=== PATIENT | male | born 1950 | race Caucasian/White ===

== ENCOUNTER 2020-10-19 00:06 | Inpatient (IN) | payer OTHER ==
[~2020-10-19] VITALS: Ht 180.3 cm; Wt 102.5 kg
--- NOTE | 2020-10-19 00:08 | NUR ---
Pt presents to the ER c/o sob, cp, and a sharp headache. Pt states " the pain comes and goes and i felt better after the nitro". Pt aaox4 breathing even and unlabored, VSS. Pt denies any cardiac hx, but states that he has a hx of migrane headaches when he" was in college" Skin is warm and intact with an iv on the rt hand 20g by RA. Pt attached to the monitor and POX. Call light within reach. Will continue to monitor.
--- NOTE | 2020-10-19 00:09 | NUR ---
lab at bedside
[2020-10-19] MEDS ORDERED: NITROGLYCERIN PACKET 1 GM PACKET TD ONE (00:30)
[2020-10-19] MEDS ORDERED: IV NS 0.9% 1,000 ML IV PRN ×2 (00:30→01:30)
[2020-10-19 00:33] LABS: BASOPHILS # (AUTO) 0.1 /CMM (0.0-0.2); BASOPHILS % (AUTO) 1.5 % (0.0-2.0); LYMPHOCYTES % (AUTO) 22.4 % (20.0-44.0); MONOCYTES # (AUTO) 0.2 /CMM (0.1-1.30); MONOCYTES % (AUTO) 5.2 % (2.0-12.0); NEUTROPHILS # (AUTO) 2.9 /CMM (1.8-8.9); NEUTROPHILS % (AUTO) 68.9 % (43.0-81.0)
[2020-10-19 00:41] LABS: CALCIUM, SERUM 9.1 mg/dL (8.5-10.1); POTASSIUM 3.6 mmol/L (3.5-5.1)
[2020-10-19] MEDS ORDERED: AZITHROMYCIN 500 MG in IV D5W 250 ML IV ONE (01:00)
[2020-10-19] MEDS ORDERED: CEFTRIAXONE 1 G in IV D5W 50 ML IV ONE (01:00)
[2020-10-19] MEDS ORDERED: AZITHROMYCIN 500 MG VIAL ONE (01:13)
[2020-10-19] MEDS ORDERED: NITROGLYCERIN PACKET 1 GM PACKET ONE (01:14)
[2020-10-19] MEDS ORDERED: CEFTRIAXONE 1GM BAG (ER ONLY) 50 ML IV ONE (01:15)
--- NOTE | 2020-10-19 01:55 | NUR ---
CALL FROM LAB, RAPID COVID NEGATIVE.
[2020-10-19 02:00] LABS: RED BLOOD CELL COUNT(AUTO) 3.17 MIL/uL (4.5-6.0); WHITE BLOOD COUNT (AUTO) 5.2 K/uL (4.3-11.0)
[2020-10-19 02:02] LABS: HEMATOCRIT 33 % (39-51); MEAN CORPUSCULAR VOLUME 103 fL (80-96)
[2020-10-19 02:03] LABS: MEAN CORPUSCULAR HGB CONC 37 g/dl (31.0-36.0)
[2020-10-19 02:04] LABS: PLATELET COUNT (AUTO) 326 /CMM (150-450)
[2020-10-19 02:13] LABS: EOSINOPHILS % (MANUAL) 1 % (0-4); LYMPHOCYTES % (MANUAL) 18 % (16-48); MONOCYTES % (MANUAL) 7 % (0-11.0); NEUTROPHILS % (MANUAL) 74 (42-76)
--- NOTE | 2020-10-19 02:37 | NUR ---
SPOKE WITH CAN PATCHER DANA, CLINICAL INFORMATION GIVEN. POSSIBLE TRANSFER TO [facility]. PER DANA, WILL CALL BACK WITH TRANSFER INFORMATION
--- NOTE | 2020-10-19 05:21 | NUR ---
PT AMBULATED TO THE RESTROOM WITH MY ASSITANCE.
[2020-10-19] MEDS ORDERED: ONDANSETRON HCL/PF 4 MG/2 ML VIAL IV ONE (05:30)
[2020-10-19] MEDS ORDERED: ONDANSETRON HCL/PF 4 MG/2 ML VIAL ONE (05:33)
--- NOTE | 2020-10-19 07:31 | NUR ---
SENT RAPID COVID RESULT VIA FAX #[phone] TO MAIRA SWAN [facility] TABLE MECHANIC (#[phone])
--- NOTE | 2020-10-19 09:34 | NUR ---
spoke with alonso ron from [facility]. per ariadne they will see if they can transfer to [facility] since [facility] does not have any [facility] beds at the moment. alonso ron [phone]
[2020-10-19] MEDS ORDERED: FERR325T23 PO (12:58)
[2020-10-19] MEDS ORDERED: CARV6.252 PO (12:58)
[2020-10-19] MEDS ORDERED: ASCO500T20 PO (12:58)
[2020-10-19] MEDS ORDERED: DULO60CA64 PO (12:58)
[2020-10-19] MEDS ORDERED: DOCU100C36 PO (12:58)
[2020-10-19] MEDS ORDERED: MAGN400O6 PO (13:10)
[2020-10-19] MEDS ORDERED: ELVI1TAB3 PO (13:10)
[2020-10-19] MEDS ORDERED: ASPI-1169 PO (13:10)
[2020-10-19] MEDS ORDERED: ENTA200T PO (13:10)
[2020-10-19] MEDS ORDERED: CARB-93 PO (13:10)
[2020-10-19] MEDS ORDERED: TAMS-12 PO (13:10)
[2020-10-19] MEDS ORDERED: PANT40TA2 PO (13:10)
[2020-10-19] MEDS ORDERED: NA P133E RC ×2 (13:10)
[2020-10-19] MEDS ORDERED: ATOR40TA PO (13:10)
[2020-10-19] MEDS ORDERED: ACET325T53 PO (13:10)
[2020-10-19] MEDS ORDERED: LOSA100T31 PO (13:10)
--- NOTE | 2020-10-19 16:51 | NUR ---
maxime brother [phone]
--- NOTE | 2020-10-19 18:31 | NUR ---
DAMICO VIRUS PCR DONE AND SENT TO LAB
--- NOTE | 2020-10-19 19:30 | NUR ---
BED 109
--- NOTE | 2020-10-19 19:38 | NUR ---
REPORT GIVEN TO SANTOS BAUTISTA
[2020-10-19] MEDS ORDERED: ACETAMINOPHEN 325 MG TABLET PO PRN (20:30)
[2020-10-19] MEDS ORDERED: NA PHOS,M-B/NA PHOS,DI-BA 1 EA ENEMA RC PRN ×2 (20:30)
[2020-10-19] MEDS ORDERED: MAGNESIUM HYDROXIDE 30 ML UDC PO PRN (20:30)
--- NOTE | 2020-10-19 20:39 | NUR ---
RAPID PCR SWABBED.
[2020-10-19] MEDS ORDERED: ZOLPIDEM TARTRATE 5 MG TABLET PO PRN (21:00)
--- NOTE | 2020-10-19 21:00 | NUR ---
RN NOTE PT ARRIVED TO THE UNIT VIA GURNEY, PT IS A/O X4, ON RA SATING 96%, HAS UNLABORED BREATHING.PT ON TELE MONITOR SHOWING SR WITH HR IN 80s. SAFETY MEASURES IN PLACE.
--- NOTE | 2020-10-19 21:10 | NUR ---
PT TRANSFERED PER [facility]
[2020-10-19 21:41] VITALS: BP 175/89
[2020-10-19] MEDS: CARBIDOPA/LEVODOPA 25/100 MG 1 UDTAB PO SCH (21:44)
[2020-10-19 21:50] VITALS: BP 158/81
[2020-10-19] MEDS ORDERED: ATORVASTATIN 40 MG TABLET PO SCH (22:00)
[2020-10-20] VITALS: BP 131/83
[2020-10-20] MEDS: CARBIDOPA/LEVODOPA 25/100 MG 1 UDTAB PO SCH ×4 (01:44→12:33)
[2020-10-20 04:00] VITALS: BP 174/87
--- NOTE | 2020-10-20 05:00 | NUR ---
pt has bp lowest bp 160/81 and highest bp 174/87 informed destini advanced manufacturing technician received clonodine 0.1 mg pox1.
[2020-10-20] MEDS ORDERED: CLONIDINE HCL 0.1 MG TABLET PO SCH (05:45)
--- NOTE | 2020-10-20 06:25 | NUR ---
RT EKG STAT PERFORMED @ 0600. NO CRITICAL RESULTS. REPORT GIVEN TO WAN BAUTISTA.
--- NOTE | 2020-10-20 07:10 | NUR ---
JOURNEYMAN TOOL AND DIE MAKER OPENING NOTES RECEIVED PT AWAKE IN BED AT THIS TIME. PT AOX4. PT ABLE TO VERBALIZE NEEDS. NO SOB NOTED, NO S/S OF ANY ACUTE DISTRESS NOTED. NO C/O PAIN AT THIS TIME. RESPIRATIONS ARE EVEN AND UNLABORED WITH EQUAL RISE AND FALL IN CHEST. PT STABLE ON RA. IV ACCESS NOTED IN LEFT HAND G#20, INTACT, PATENT AND FLUSHING WELL. PT ON EXTERNAL TELE MATHEMATICS LECTURER READING ST IN THE 100s. ASPIRATION AND SAFETY PRECAUTION IN PLACE AND MAINTAINED AT ALL TIMES. BED IN LOWEST LOCKED POSITION, HOB ELEVATED, SIDE RAILS UP X 2, CALL LIGHT AND TABLE WITHIN REACH. WILL CONTINUE TO MONITOR
[2020-10-20] MEDS ORDERED: PANTOPRAZOLE 40 MG TABLET.DR PO SCH (07:30)
--- NOTE | 2020-10-20 07:34 | NUR ---
RN NOTE PT STAYED STABLE NO ACUTE CHANGES REPORT GIVEN FOR REYNALDO.
[2020-10-20 08:00] VITALS: BP 174/93
[2020-10-20] MEDS ORDERED: NITROGLYCERIN 0.4 MG/TAB BOTTLE SL ONE (08:00)
[2020-10-20 08:39] LABS: CHOLESTEROL 82 mg/dL (<200); HDL CHOLESTEROL 42 mg/dL (40-60); LDL 31 mg/dL (0-99); TRIGLYCERIDES 75 mg/dL (30-150)
[2020-10-20] MEDS ORDERED: IOHEXOL-350 100 ML VIAL IV ONE (08:54)
[2020-10-20] MEDS ORDERED: IV NS 0.9% 250 ML IV ONE (08:54)
[2020-10-20] MEDS ORDERED: METOPROLOL TARTRATE INJ 5 MG/5 ML AMPUL ONE (08:54)
[2020-10-20] MEDS: METOPROLOL TARTRATE INJ 5 MG/5 ML AMPUL IVP PRN ×5 (08:55→09:15)
[2020-10-20] MEDS ORDERED: LOSARTAN POTASSIUM 50 MG TABLET PO SCH (09:00)
[2020-10-20] MEDS ORDERED: DULOXETINE HCL 30 MG CAPSULE.DR PO SCH (09:00)
[2020-10-20] MEDS ORDERED: TAMSULOSIN 0.4 MG CAP.SR.24H PO SCH (09:00)
[2020-10-20] MEDS ORDERED: ASPIRIN 81 MG TAB.CHEW PO SCH (09:00)
[2020-10-20] MEDS ORDERED: CARVEDILOL 6.25 MG TABLET PO SCH (09:00)
[2020-10-20] MEDS: ENTACAPONE 200 MG TABLET PO SCH ×2 (09:49→12:33)
[2020-10-20 12:00] VITALS: BP 109/59
--- NOTE | 2020-10-20 13:08 | NUR ---
PIPELINE GANG SUPERVISORCLIENT RELATIONSHIP EXECUTIVE NOTES PT DISCHARGE TO HOME AT THIS TIME. PT IS MEDICALLY STABLE AND CLEARED FOR DISCHARGE. PT KEPT CLEAN AND DRY. ALL CARE, NEEDS, TREATMENT AND MEDICATIONS ADMINISTERED ANTICIPATED PER ORDER. DISCHARGE INSTRUCTIONS PROVIDED. ALL BELONGINGS ACCOUNTED FOR, SIGNED BY PT, RETURN TO PT AND COPY OF BELONGING LIST FILED IN CHART. ID BAND REMOVED. IV ACCESS REMOVED, PRESSURE APPLIED, SECURED WITH GAUZE AND TAPE. NO SIGN OF BLEEDING OR INFILTRATION NOTED. PT LEFT THE UNIT AT THIS TIME IN STABLE CONDITION ACCOMPANIED BY CAITLIN ARMSTRONG TRANSPORTED ON WHEELCHAIR. SOON,CHARGE NURSE AND DR CAO AWARE. PT IS BEING PICKED UP BY JOSE ANTONY'S BROTHER
[2020-10-21] MEDS ORDERED: GENVOYA PO SCH (09:00)
== END 2020-10-20 13:00 | disposition home or self-care (01) | DRG 313 ==
LOC: ER 00:06 → TELE1 20:09
PROVIDERS: ADMIT Internal Medicine; ATTEND Internal Medicine
DX: R07.89 Other chest pain (principal); R91.8 Other nonspecific abnormal finding of lung field; I10 Essential (primary) hypertension; Z88.0 Allergy status to penicillin; G20 Parkinson's disease; Z82.49 Family history of ischemic heart disease and other diseases of the circulatory system
CPT/HCPCS: 36415; 71045-TC; 71250-TC; 75574; 80048-TC; 80061-TC; 84484-TC; 85025-TC; 85610-TC; 85730-TC; 87081-TC; C9803; G0378; J0456; J0696; J2405; J3490; J7030; J7050; J7060; Q9967; U0003